=== PATIENT | male | born 1975 | race Caucasian/White ===

== ENCOUNTER 2018-05-27 22:49 | Emergency (ER) | payer OTHER ==
[2018-05-27 22:56] VITALS: PULSE 89; TEMP 98; BMI 30.5
--- NOTE | 2018-05-27 23:10 | PDOC ---
History of Present Illness - General Chief Complaint: Chest Pain Stated Complaint: CHEST PAIN Time Seen by Provider: 05/27/18 22:50 History Source: Patient Exam Limitations: No Limitations - History of Present Illness Initial Comments: 05/27/18 23:10 This is a 42-year-old male who comes in complaining of chest tightness 1 hour. Patient was at his primary care doctor's today for his ago and was noted to have hypertension. Patient was started on antihypertensive medications and told to start them tomorrow morning so hasn't started them yet. Patient otherwise is a [id number]-[id number] smoking history, family history of coronary artery disease. Patient does not know if he has high cholesterol. Patient denies any illegal drug use. Patient denies any associated symptoms shortness of breath, diaphoresis, radiation, nausea. Patient has a history of similar symptoms in the past but has always attributed to gas pains. Patient took some antacids but did not experience any relief this time so came in for evaluation. PAST MEDICAL HISTORY: no significant history PAST SURGICAL HISTORY: no significant history FAMILY HISTORY: no pertinant history SOCIAL HISTORY: Pt lives with family and is employed. MEDICATIONS: reviewed ALLERGIES: As per nursing notes Review of Systems General: No fevers or chills, no weakness, no weight loss HEENT: No change in vision. No sore throat,. No ear pain CardioVascular: + Chest pressure, no shortness of breath Respiratory:No cough, or wheezing. Gastrointestinal: no nausea, vomitting, diarrhea or constipation, No rectal bleeding Genitourinary: No dysuria, hematuria, or frequency Musculoskeletal: No joint or muscle pain or swelling Neurologic: No headache, vertigo, dizziness or loss of consciousness Psychiatric: nor depression Skin: No rashes or easy bruising Endocrine: no increased thirst or abnormal weight change Allergic: no skin or latex allergy All other systems reviewed and normal Exam: General: Well-nourished well-developed individual, no acute distress HEENT: Throat: Normal, tonsils normal, no erythema or exudate Neck: Supple, no meningeal signs, no lymphadenopathy Eyes::Pupils equal reactive and round, extraocular motion intact Chest: Nontender to palpation Cardiac: S1-S2 normal, regular rate and rhythm, no murmurs rubs or gallops Respiratory: Lungs clear to auscultation bilateral Abdomen: Soft, nondistended, normal bowel sounds, nontender to palpation diffusely Extremities: Warm, dry, no cyanosis, clubbing, or edema Skin: No rashes Neuro: Alert and oriented x3, CN II - XII intact, nonfocal exam with normal strength, normal sensation, normal reflexes, normal gait, Psych: Normal mood and affect Medical decision making this is a 42-year-old male who comes in complaining of chest tightness. Patient does have several risk factors. We'll send cardiac enzymes. If they are negative patient start score is 2. Will give antacid also and his blood pressure is elevated so we'll give her some nitroglycerin to see if it affects the chest pressure as well as the blood pressure. Will follow-up on workup and reassess patient. 05/27/18 23:13 Post Xanax patient is chest pain resolved and he feels much better Patient's heart score is 2 Patient's troponin is not measurable Patient discharged home will follow-up with his primary care doctor 05/28/18 00:31 Past History - Past Medical History Allergies/Adverse Reactions: Allergies Allergy/AdvReac Type Severity Reaction Status Date / Time No Known Allergies Allergy Verified 01/12/16 21:03 Home Medications: Ambulatory Orders Bexarotene 75 mg PO DAILY 01/12/16 COPD: No HTN: Yes - Suicide/Smoking/Psychosocial Hx Smoking History: Unknown if ever smoked Have you smoked in the past 12 months: No Number of Cigarettes Smoked Daily: 0 Information on smoking cessation initiated: No 'Breaking Loose' booklet given: 01/12/16 Hx Alcohol Use: No Drug/Substance Use Hx: No Substance Use Type: None *Physical Exam - Vital Signs Last Vital Signs Temp Pulse Resp BP Pulse Ox 98 F 89 14 153/100 100 05/27/18 22:52 05/27/18 22:52 05/27/18 22:52 05/28/18 00:10 05/27/18 22:52 Heart Score/ECG Review - History History: Slightly suspicious - Electrocardiogram EKG: Normal - Age Age: </= 45 - Risk Factors Based on the list above the patient has:: >/=3 risk factors or Hx atherosclerotic disease - Troponin Troponin: </= normal limit - Score Heart Score - Total: 2 ED Treatment Course - ADDITIONAL ORDERS Additional order review: Laboratory Results 05/28/18 00:01 Creatine Kinase 154 Troponin I < 0.02 - Medications Given in the ED: ED Medications Discontinued Medications Generic Name Dose Route Start Last Admin Trade Name Leonides PRN Reason Stop Dose Admin Al Hydroxide/Mg Hydroxide 30 ml 05/27/18 23:16 05/27/18 23:26 Mylanta Oral Suspension - PO 05/27/18 23:17 30 ml ONCE ONE Administration *DC/Admit/Observation/Transfer Diagnosis at time of Disposition: Essential hypertension, Atypical chest pain - Discharge Dispostion Disposition: HOME Condition at time of disposition: Good Decision to Admit order: No - Referrals - Patient Instructions Additional Instructions: Make sure you get your prescription filled for your blood pressure medication and start taking it as prescribed. Try to reduce the stress in your life. Return to the emergency department immediately with ANY new, persistent or worsening symptoms. Continue any medications as previously prescribed by your physician. You should follow up with your primary doctor as soon as possible regarding today's emergency department visit. . Please make sure your doctor reviews the results of your emergency evaluation. Thank you for coming to the Emergency Department today for your care. It was a pleasure to see you today. Please note that your evaluation is INCOMPLETE until you follow-up with your doctor. - Post Discharge Activity
[2018-05-27] MEDS ORDERED: NITROGLYCERIN SUBLINGUAL 1/200 0.3 MG BTL SL ONE (23:14)
[2018-05-27] MEDS ORDERED: ALPRAZolam 1 MG TABLET PO PRN (23:15)
[2018-05-27] MEDS ORDERED: MAG HYDROX/AL HYDROX/SIMETH 30 ML UNIT-DOSE CUP PO ONE (23:16)
[2018-05-27] MEDS ORDERED: ALPRAZolam 0.25 MG TABLET ONE (23:24)
[2018-05-27] MEDS ORDERED: MAG HYDROX/AL HYDROX/SIMETH 30 ML UNIT-DOSE CUP ONE (23:24)
[2018-05-28 00:10] VITALS: BP 153/100
--- NOTE | 2018-06-08 15:07 | EKG ---
Test Reason : Blood Pressure : / mmHG Vent. Rate : 081 BPM Atrial Rate : 081 BPM P-R Int : 148 ms QRS Dur : 100 ms QT Int : 370 ms P-R-T Axes : 065 076 006 degrees QTc Int : 429 ms NORMAL SINUS RHYTHM WITH SINUS ARRHYTHMIA NORMAL ECG NO PREVIOUS ECGS AVAILABLE Confirmed by DEAN PRATER, MADELEINE ([id number]) on 06/08/2018 3:07:11 PM Referred By: MD ELIZONDO Confirmed By:MADELEINE MORAN MD
== END 2018-05-28 00:36 | disposition home or self-care (01) ==
LOC: FER 22:49
DX: I10 Essential (primary) hypertension (principal); R07.89 Other chest pain
CPT/HCPCS: 36415; 82550; 82553; 84484; 93005; 93010; 99284-25

== ENCOUNTER 2018-08-04 08:52 | Emergency (ER) | payer OTHER ==
[2018-08-04 09:02] VITALS: PULSE 88; TEMP 98.4; BMI 29.5
[2018-08-04] MEDS ORDERED: FAMOTIDINE 20 MG TABLET PO ONE (09:17)
[2018-08-04] MEDS ORDERED: LIDOCAINE VISCOUS 2% ORAL/TOP 20 ML UNIT-DOSE CUP MM ONE (09:17)
[2018-08-04] MEDS ORDERED: MAG HYDROX/AL HYDROX/SIMETH 30 ML UNIT-DOSE CUP PO ONE (09:17)
[2018-08-04] MEDS ORDERED: MAG HYDROX/AL HYDROX/SIMETH 30 ML UNIT-DOSE CUP ONE (09:21)
[2018-08-04] MEDS ORDERED: FAMOTIDINE 20 MG TABLET ONE (09:21)
[2018-08-04] MEDS ORDERED: LIDOCAINE VISCOUS 2% ORAL/TOP 20 ML UNIT-DOSE CUP ONE (09:22)
[2018-08-04 09:45] LABS: BASO % 0.9 % (0-2.0); EOS % 12.7 % (0-4.5); HEMATOCRIT 45.5 % (35.4-49); HEMOGLOBIN 14.9 GM/dl (11.7-16.9); LYMPH % 34.7 % (8-40); MCH 30.5 pg (25.7-33.7); MCHC 32.8 g/dl (32.0-35.9); MEAN CELL VOLUME 92.7 fl (80-96); MEAN PLT VOLUME 7.9 fl (7.5-11.1); MONO % 6.9 % (3.8-10.2); NEUT % 44.8 % (42.8-82.8); PLATELET COUNT 288 K/MM3 (134-434); RBC 4.91 M/mm3 (4.00-5.60); RDW 13.3 % (11.9-15.9); WHITE BLOOD COUNT 9.9 K/mm3 (4.0-10.8)
[2018-08-04 09:52] LABS: ALBUMIN 4.2 g/dl (3.5-5.0); ALK PHOS 77 U/L (32-92); ANION GAP 9 MMOL/L (8-16); BILIRUBIN,TOTAL 0.6 mg/dl (0.2-1.0); BLOOD UREA NITROGEN 20 mg/dl (7-18); CALCIUM 9.3 mg/dl (8.4-10.2); CHLORIDE 103 mmol/L (98-107); CO2 23 mmol/L (22-28); CREATININE 0.8 mg/dl (0.6-1.3); GLUCOSE,RANDOM 123 mg/dl (74-106); SGOT/AST 28 U/L (10-42); SGPT/ALT 35 U/L (10-40); SODIUM 135 mmol/L (136-145)
[2018-08-04 10:44] LABS: LIPASE 199 U/L (73-393)
--- NOTE | 2018-08-04 10:51 | PDOC ---
History of Present Illness - General Chief Complaint: Pain, Acute Stated Complaint: ABD PAIN Time Seen by Provider: 08/04/18 09:06 History Source: Patient Exam Limitations: No Limitations - History of Present Illness Initial Comments: 08/04/18 10:47 43-year-old male history of reflux here today complaining of epigastric abdominal pain. 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 No recent travel no rash all stools are nonbloody Past History - Past Medical History Allergies/Adverse Reactions: Allergies Allergy/AdvReac Type Severity Reaction Status Date / Time No Known Allergies Allergy Verified 08/04/18 08:52 Home Medications: Ambulatory Orders Famotidine [Pepcid] 20 mg PO DAILY #30 tablet 08/04/18 Losartan Potassium [Cozaar -] 25 mg PO DAILY 08/04/18 COPD: No HTN: Yes - Suicide/Smoking/Psychosocial Hx Smoking History: Current every day smoker Have you smoked in the past 12 months: No Number of Cigarettes Smoked Daily: 15 Information on smoking cessation initiated: No 'Breaking Loose' booklet given: 01/12/16 Hx Alcohol Use: Yes Drug/Substance Use Hx: No Substance Use Type: Alcohol Review of Systems - Review of Systems Constitutional: No: Chills, Diaphoresis, Fever HEENTM: No: Blurred Vision Respiratory: No: Orthopnea Cardiac (ROS): No: Edema, Irregular Heart Rate ABD/GI: Yes: Diarrhea, Nausea, Indigestion : No: Burning, Dysuria, Discharge Musculoskeletal: No: Back Pain, Gout Integumentary: No: Bruising All Other Systems: Reviewed and Negative *Physical Exam - Vital Signs Last Vital Signs Temp Pulse Resp BP Pulse Ox 98.4 F 88 18 161/114 97 08/04/18 08:52 08/04/18 08:52 08/04/18 08:52 08/04/18 08:52 08/04/18 08:52 - Physical Exam General Appearance: Yes: Appropriately Dressed Respiratory/Chest: positive: Lungs Clear, Normal Breath Sounds Cardiovascular: positive: Regular Rhythm, Regular Rate, S1, S2 Gastrointestinal/Abdominal: positive: Normal Bowel Sounds, Tender (mild epigastric tenderness), Flat, Soft Extremity: positive: Normal Capillary Refill Integumentary: positive: Normal Color, Dry, Warm Neurologic: positive: Fully Oriented, Alert, Normal Mood/Affect Heart Score/ECG Review #1 General ECG Interpretation: Sinus Rhythm, Normal Rate (82), Normal Intervals, No acute ischemic changes (twi III only) ED Treatment Course - LABORATORY CBC & Chemistry Diagram: 08/04/18 09:28 08/04/18 09:28 - ADDITIONAL ORDERS Additional order review: Laboratory Results 08/04/18 09:28 Sodium 135 L Potassium 4.0 Chloride 103 Carbon Dioxide 23 Anion Gap 9 BUN 20 H Creatinine 0.8 Creat Clearance w eGFR > 60 Random Glucose 123 H Calcium 9.3 Total Bilirubin 0.6 AST 28 ALT 35 Alkaline Phosphatase 77 Total Protein 7.0 Albumin 4.2 08/04/18 09:28 RBC 4.91 MCV 92.7 MCHC 32.8 RDW 13.3 MPV 7.9 Neutrophils % 44.8 Lymphocytes % 34.7 Monocytes % 6.9 Eosinophils % 12.7 H Basophils % 0.9 - RADIOLOGY Radiology Studies Ordered: Category Date Time Status ABDOMEN US -LIMITED [US] Stat Ultrasound 08/04/18 09:16 Completed - Medications Given in the ED: ED Medications Discontinued Medications Generic Name Dose Route Start Last Admin Trade Name Freq PRN Reason Stop Dose Admin Al Hydroxide/Mg Hydroxide 30 ml 08/04/18 09:17 08/04/18 09:25 Mylanta Oral Suspension - PO 08/04/18 09:18 30 ml ONCE ONE Administration Famotidine 20 mg 08/04/18 09:17 08/04/18 09:25 Pepcid - PO 08/04/18 09:18 20 mg ONCE ONE Administration Lidocaine HCl 10 ml 08/04/18 09:17 08/04/18 09:25 Xylocaine 2% Viscous Oral - MM 08/04/18 09:18 10 ml ONCE ONE Administration Medical Decision Making - Medical Decision Making 08/04/18 10:49 43-year-old male with mild epigastric tenderness complaining of nausea and diarrhea. Patient is drinking coffee without difficulty. minimal epigastric tenderness on exam. concerns of rat dropping exposure however pt denies a pulmonary signs. is nontoxic appearing. will check CBC CMP to look for signs of infection evaluate liver tests and lipase also ultrasound to evaluate for cholelithiasis Patient is likely suffering symptoms of GERD or viral ge post gi cocktail feels better no loose stools while in ed *DC/Admit/Observation/Transfer Diagnosis at time of Disposition: Gastritis - Discharge Dispostion Disposition: HOME Condition at time of disposition: Improved - Prescriptions Prescriptions: Famotidine [Pepcid] 20 mg PO DAILY #30 tablet - Referrals Referrals: Carissa Lorenz [Primary Care Provider] - Nima Rodrigues MD [Staff Physician] - Mp Cardoza MD [Staff Physician] - - Patient Instructions Printed Discharge Instructions: Gastritis Additional Instructions: you should take pepcid 20 mg every day. you should also follow up with a tabulating machine mechanic. see referral information for dr. cardoza or dr. rodrigues. you can also receive a referral from your primary doctor. return for any fever, difficulty breathing or any concerns. be sure to wear a mask when cleaning up rodent droppings. - Post Discharge Activity
[2018-08-04 11:14] VITALS: BP 153/110
--- NOTE | 2018-08-05 08:47 | EKG ---
Test Reason : Blood Pressure : / mmHG Vent. Rate : 082 BPM Atrial Rate : 082 BPM P-R Int : 144 ms QRS Dur : 100 ms QT Int : 372 ms P-R-T Axes : 073 071 014 degrees QTc Int : 434 ms NORMAL SINUS RHYTHM WITH SINUS ARRHYTHMIA NORMAL ECG WHEN COMPARED WITH ECG OF 27-MAY-2018 22:53, NO SIGNIFICANT CHANGE WAS FOUND Confirmed by SIMONE PRATER, ODETTE ([id number]) on 08/05/2018 8:46:38 AM Referred By: YOSELYN AVENDANO Confirmed By:ODETTE NICHOLS MD
== END 2018-08-04 11:50 | disposition home or self-care (01) ==
LOC: FER 08:52
DX: K52.9 Noninfective gastroenteritis and colitis, unspecified (principal); F17.210 Nicotine dependence, cigarettes, uncomplicated; I10 Essential (primary) hypertension
CPT/HCPCS: 36415; 76705-TC; 80053; 83690; 85025; 93005; 99283-25